=== PATIENT | male | born 1990 | race African-American/Black ===

== ENCOUNTER 2017-10-19 19:26 | Emergency (ER) | payer OTHER ==
[~2017-10-19 19:26] MED LIST: AUGMENTIN 875 M1 TAB PO; BACTRIM DS TAB1 EACH PO; HYDROXYZINE HYD50 MG PO; IBUPROFEN800 MG PO; KEFLEX500 MG PO; ORAPRED15 MG/5 ML PO; PERCOCET 325 MG1 TA2 PO
[2017-10-19 19:51] VITALS: BP 125/68
== END 2017-10-19 21:03 | disposition admitted as inpatient to this hospital (09) ==
LOC: ERH 19:26
DX: Z48.00 Encounter for change or removal of nonsurgical wound dressing (principal)

== ENCOUNTER 2017-10-21 02:38 | Emergency (ER) | payer OTHER ==
--- NOTE | 2017-10-21 04:03 | ED SKIN/ALLERGY COMPLAINT ---
History of Present Illness General Chief Complaint: Skin Rash/ Abcess Stated Complaint: "ABCESS ON RECTUM" Source: patient Exam Limitations: no limitations Vital Signs & Intake/Output Vital Signs & Intake/Output Vital Signs Date Time Temp Pulse Resp B/P B/P Pulse O2 O2 Flow FiO2 Mean Ox Delivery Rate 10/21 0637 98.2 67 18 110/61 98 Room Air 10/21 0416 98.3 75 18 102/55 99 Room Air 10/21 0320 Room Air Allergies Coded Allergies: tetrahydrozoline (UNKNOWN 07/18/15) Reconcile Medications AMOXICILLIN/POTASSIUM CLAV (Augmentin 875-125 Tablet) 875 MG/125 MG TAB 1 TAB PO BID PHARYNGITIS Cephalexin (Keflex) 500 MG CAP 1 TAB PO 4 TIMES/DAY INFECTION PREVENTION HYDROXYZINE HCL (Hydroxyzine Hydrochloride) 50 MG TAB 50 MG PO PRN SLEEP ( Reported) Ibuprofen 800 MG TAB 1 TAB PO 4 TIMES/DAY PRN PAIN Ibuprofen 800 MG TAB 1 TAB PO TID PRN PAIN OXYCODONE HCL/ACETAMINOPHEN (Percocet 5-325 MG Tablet) 325 MG/5 MG TAB 1-2 TAB PO Q4-6 PRN PRN PAIN Prednisolone Sodium Phosphat (Orapred) 15 MG/5 ML DELFINO 2 TSP PO QDAY PHARYNGITIS Sulfamethoxazole/Trimethoprim (Bactrim Ds Tablet) 800 MG-160 MG TABLET 1 TAB PO BID cellulitis Triage Note: PT TO TRIAGE WITH ABSCESS TO R GLUT. PT WAS TOLD TO COME FOR WOUND CHECK, HOWEVER REPORTS IT IS WORSE. TO ROOM 1, CHANGING INTO GOWN, AWAITING MD MAGALLANES. Triage Nurses Notes Reviewed? yes HPI: Patient presents for evaluation of a possible abscess. Patient states that he had in the area opened and was placed on antibiotics 3 days ago. He was asked to return for repeat evaluation. He denies any associated fever or cold symptoms. He has been taking Epsom salt baths as well as the antibiotics. The pain is a constant throbbing pain gets worse with palpation and sitting. Past History Travel History Traveled to [place] past 21 day No Medical History Any Pertinent Medical History? 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 No Review of Systems Review of Systems Constitutional: Reports: no symptoms. EENTM: Reports: no symptoms. Respiratory: Reports: no symptoms. Cardiovascular: Reports: no symptoms. GI: Reports: no symptoms. Genitourinary: Reports: no symptoms. Musculoskeletal: Reports: no symptoms. Skin: Reports: see HPI. Neurological/Psychological: Reports: no symptoms. Hematologic/Endocrine: Reports: no symptoms. Immunologic/Allergic: Reports: no symptoms. All Other Systems: Reviewed and Negative Physical Exam Physical Exam General Appearance: see below Comments: Gen.: Well-nourished, well-developed, no acute respiratory distress. Head: Normocephalic, atraumatic. Eyes: Normal inspection bilaterally Ears: Normal inspection bilaterally Nose: Normal inspection Throat/mouth : Moist mucosa Neck: Supple, full range of motion, no goiter Lungs: Quiet respirations Back: Normal range of motion Extremities: Normal range of motion grossly, no cyanosis clubbing or edema of the upper extremities Neurologic: Cranial nerves grossly intact, speech is clear Skin: warm and dry Psychiatric: Calm, cooperative, no apparent delusions or hallucinations Rectal exam: Diffuse bogginess of the right perirectal region with no pointing fluctuance or erythema Progress Differential Diagnosis: abscess/cellulitis Plan of Care: Orders Procedure Date/time Status BASIC METABOLIC PANEL 10/21 521 Complete Laboratory Tests 10/21/17 0537: Anion Gap 10, Estimated GFR > 60, BUN/Creatinine Ratio 11.0, Glucose 85, Calcium 8.8 Diagnostic Imaging: Discussed w/RAD: CT Scan. Radiology Impression: PATIENT: ALEXIA EDWARDS PRESENT AGE: 26 PATIENT ACCOUNT NO: [id number] : 92 LOCATION: [facility] ORDERING PHYSICIAN: Stephon Salcido MD SERVICE DATE: 10/21/17 EXAM TYPE : CAT - CT PELVIS W IV CONTRAST EXAMINATION: CT PELVIS WITH IV CONTRAST CLINICAL INFORMATION: Right perirectal swelling; question abscess. COMPARISON: None TECHNIQUE: Helical scanning was performed with submillimeter collimation through the pelvis with 95 mL of Optiray 320 intravenous contrast. Sagittal and coronal multiplanar 2-D reconstructions were obtained. DLP: 225.58 mGy-cm FINDINGS: PELVIS: In the medial right buttock posteroinferior to the anus, there is a subcutaneous abscess measuring 3.4 x 1.4 x 2.3 cm (2:53 and 602:54). This shows adjacent dermal thickening and subcutaneous fat stranding there is no jena perianal or perirectal abscess. Included bowel loops are unremarkable. There is no pelvic adenopathy seen. The urinary bladder, prostate gland and seminal vesicles are unremarkable. Vascular structures are unremarkable. OSSEOUS STRUCTURES: The regional bones are unremarkable. IMPRESSION: In the medial right buttock, posteroinferior to the anus, there is a subcutaneous abscess, with dimensions as above. DICTATED BY: Freddy Abdullahi MD DATE/TIME DICTATED:10/21/17723 SITE LEADER:INOCENCIA DATE/TIME TRANSCRIBED:10/21/17723 CONFIDENTIAL, DO NOT COPY WITHOUT APPROPRIATE AUTHORIZATION. <Electronically signed in Other Vendor System> SIGNED BY: Freddy Abdullahi MD 10/21/17 0734 Comments: 10/21/2017 5:22:42 AM I have just spoken with the geothermal field technician regarding the delay in this patient's CAT scan. I was told that "all patient's require blood tests" if they are to receive IV contrast. 10/21/2017 7:49:24 AM I have updated cleophis on the CAT scan report. Although there is a subcutaneous abscess present its location clinically is indistinct. Patient states that warrant I&D has already been attempted with no pus obtained. I do not feel it would be appropriate to attempt an I&D without a more defined clinical indication of the abscess. The patient agrees. He feels comfortable with an enhanced antibiotic coverage and follow-up with the colorectal surgeon. Departure Departure Disposition: HOME OR SELF CARE Condition: Stable Clinical Impression Primary Impression: Perirectal cellulitis Secondary Impressions: Subcutaneous abscess Qualifiers: Site of cutaneous abscess: buttock Qualified Code: L02.31 - Cutaneous abscess of buttock Referrals: Freddy Denton Jr., DO Patient Has No Primary Care Dr (PCP/Family) Additional Instructions: Continue Bactrim but add Augmentin. Ibuprofen 600 mg every 6 hours as needed for pain. Add tramadol if needed for pain. Follow-up with Dr. Denton in 48 hours for reevaluation. Return if any concerns or sudden worsening. Please note that there might be incidental findings in your evaluation that are unrelated to the current emergency department visit. Please notify your primary care doctor about this emergency department visit in order to obtain and review all of the testing performed so that these incidental findings can be monitored as needed. If you had an x-ray performed, please understand that some fractures or other findings may not be seen on the initial set of x-rays. If your symptoms persist you might need a repeat set of x-rays to check for such a fracture. If you had a laceration evaluated, please understand that foreign bodies such as glass or wood may not be visible to the naked eye or on plain x-rays. If the wound becomes red, swollen, increasingly more painful or if there is any drainage from the wound, please have it reevaluated by a physician for the possibility of a retained foreign body. If you're unable to follow up as outlined in the discharge instructions please return to the emergency department. Thank you for choosing the [facility] for your care. It was a pleasure to serve you today. Stephon Salcido M.D. [facility] Departure Forms: Customer Survey General Discharge Information Prescriptions: Current Visit Scripts Amoxicillin/Potassium Clav (Augmentin 875-125 Tablet) 1 TAB PO BID #20 TAB Diclofenac Sodium 1 TAB PO BID PRN PAIN #14 TAB Tramadol HCl (Ultram) 1-2 TAB PO Q6P PRN PAIN #10 TAB
[2017-10-21 06:37] VITALS: BP 110/61
--- NOTE | 2017-10-21 07:34 | CT SCAN REPORT ---
EXAMINATION: CT PELVIS WITH IV CONTRAST CLINICAL INFORMATION: Right perirectal swelling; question abscess. COMPARISON: None TECHNIQUE: Helical scanning was performed with submillimeter collimation through the pelvis with 95 mL of Optiray 320 intravenous contrast. Sagittal and coronal multiplanar 2-D reconstructions were obtained. DLP: 225.58 mGy-cm FINDINGS: PELVIS: In the medial right buttock posteroinferior to the anus, there is a subcutaneous abscess measuring 3.4 x 1.4 x 2.3 cm (2:53 and 602:54). This shows adjacent dermal thickening and subcutaneous fat stranding there is no jena perianal or perirectal abscess. Included bowel loops are unremarkable. There is no pelvic adenopathy seen. The urinary bladder, prostate gland and seminal vesicles are unremarkable. Vascular structures are unremarkable. OSSEOUS STRUCTURES: The regional bones are unremarkable. IMPRESSION: In the medial right buttock, posteroinferior to the anus, there is a subcutaneous abscess, with dimensions as above.
[2017-10-21] MEDS ORDERED: ULTRAM50 M1 PO (07:52)
[2017-10-21] MEDS ORDERED: AUGMENTIN 875-1 EACH PO (07:52)
[2017-10-21] MEDS ORDERED: DICLOFENAC SODI75 M2 PO (07:52)
== END 2017-10-21 08:02 ==
LOC: ERH 02:38
DX: K61.1 Rectal abscess (principal)